=== PATIENT | female | born 1940 | race Caucasian/White ===

== ENCOUNTER → 2019-01-20 | Outpatient (CLI) | payer MEDICARE ==
[~2019-01-20] MED LIST: CALC1.25T PO; CHOL10002 PO; CRANBERRY250 MG PO; HYDCHL12.5 PO; IBUP400 PO; LETR2.5 PO; LOSA50 PO; NITR100 PO; PRAV20 PO
[2019-01-20 10:25] LABS: Source, Urine Clean Catch
[2019-01-20 10:38] LABS: Appearance, Urine Hazy (Clear); Bilirubin, Urine Neg (Neg); Blood, Urine 1+ (Neg); Color, Urine Yellow (P-Yellow); Glucose Qualitative, Urine Neg (Neg); Ketones, Urine Neg (Neg); Leukocyte Esterase, Urine 3+ (Neg); Nitrite, Urine Pos (Neg); Protein, Urine 1+ (Neg); Urobilinogen, Urine NORM (Normal)
[2019-01-20 11:04] LABS: Bacteria Mod /hpf; Red Blood Cells, Urine 0-2 /hpf (0-2); Squamous Epithelial Cells Mod /hpf (Few); White Blood Cells, Urine 25-50 /hpf (0-5)
== END | disposition home or self-care (01) ==
LOC: LAB 10:25 → LAB SHORT 10:25
PROVIDERS: Internal Medicine
DX: N39.0 Urinary tract infection, site not specified (principal)
CPT/HCPCS: 81001; 87077; 87086; 87186

== ENCOUNTER → 2019-01-29 | Outpatient (CLI) | payer MEDICARE ==
[2019-01-29 11:08] LABS: Source, Urine Clean Catch
[2019-01-29 11:25] LABS: Bilirubin, Urine Neg (Neg); Blood, Urine Neg (Neg); Glucose Qualitative, Urine Neg (Neg); Ketones, Urine Neg (Neg); Leukocyte Esterase, Urine Neg (Neg); Nitrite, Urine Neg (Neg); Protein, Urine Neg (Neg); Urobilinogen, Urine NORM (Normal)
[2019-01-29 12:03] LABS: Appearance, Urine Clear (Clear); Color, Urine Yellow (P-Yellow)
== END | disposition home or self-care (01) ==
LOC: LAB 11:07 → LAB SHORT 11:07
PROVIDERS: Internal Medicine
DX: N39.0 Urinary tract infection, site not specified (principal)
CPT/HCPCS: 81003

== ENCOUNTER 2019-04-19 12:05 | Day surgery (SDC) | payer MEDICARE ==
[~2019-04-19] VITALS: Ht 154.9 cm; Wt 59.4 kg
== END 2019-04-19 14:55 | disposition home or self-care (01) ==
LOC: ORSCSDS 12:05
PROVIDERS: Orthopaedic Surgery
PROC: 01N50ZZ Release Median Nerve, Open Approach (ICD-10-PCS; principal; 2019-04-19 14:45)
DX: G56.01 Carpal tunnel syndrome, right upper limb (principal); I10 Essential (primary) hypertension; Z79.899 Other long term (current) drug therapy
CPT/HCPCS: J0690; J2250; J2704; J3010; J7120

== ENCOUNTER → 2019-05-22 | Outpatient (CLI) | payer MEDICARE ==
[2019-05-26 16:06] LABS: M-SPIKE, % Not Observed % (Not Observed); PROTEIN,TOTAL,URINE 4.1 mg/dL (Not Estab.)
== END | disposition home or self-care (01) ==
LOC: OLS 10:33 → LAB SHORT 10:33 → LAB FUT 05-18 17:00
PROVIDERS: Internal Medicine
DX: Z00.01 Encounter for general adult medical examination with abnormal findings (principal)
CPT/HCPCS: 81050; 84166; 86335

== ENCOUNTER 2019-08-16 09:02 | Day surgery (SDC) | payer MEDICARE ==
[~2019-08-16] VITALS: Ht 154.9 cm; Wt 59.1 kg
== END 2019-08-16 12:30 | disposition home or self-care (01) ==
LOC: ORSCSDS 09:02
PROVIDERS: Orthopaedic Surgery
PROC: 01N50ZZ Release Median Nerve, Open Approach (ICD-10-PCS; principal; 2019-08-16 11:45)
DX: G56.02 Carpal tunnel syndrome, left upper limb (principal); I10 Essential (primary) hypertension; E78.5 Hyperlipidemia, unspecified; Z79.899 Other long term (current) drug therapy
CPT/HCPCS: J0690; J7120

== ENCOUNTER 2019-10-07 13:20 | Day surgery (SDC) | payer MEDICARE ==
[~2019-10-07] VITALS: Ht 154.9 cm; Wt 58.8 kg
--- NOTE | 2019-10-07 15:55 | NUR ---
10/07/19 1555 Karla Genao PATIENT REFUSED MULTIPLE OFFERS OF PO FLUIDS
== END 2019-10-07 15:54 | disposition home or self-care (01) ==
LOC: ORSCSDS 13:20
PROVIDERS: Internal Medicine Gastroenterology
PROC: 0DBL8ZX Excision of Transverse Colon, Via Natural or Artificial Opening Endoscopic, Diagnostic (ICD-10-PCS; principal; 2019-10-07 15:00)
PROC: 0DBN8ZX Excision of Sigmoid Colon, Via Natural or Artificial Opening Endoscopic, Diagnostic (ICD-10-PCS; principal; 2019-10-07 15:00)
DX: Z12.11 Encounter for screening for malignant neoplasm of colon (principal); Z86.010 Personal history of colon polyps; D12.3 Benign neoplasm of transverse colon; D12.5 Benign neoplasm of sigmoid colon; K57.30 Diverticulosis of large intestine without perforation or abscess without bleeding; K64.8 Other hemorrhoids; I10 Essential (primary) hypertension; Z79.899 Other long term (current) drug therapy
CPT/HCPCS: 88305; J2704; J7120

== ENCOUNTER 2020-01-19 11:39 | Day surgery (SDC) | payer MEDICARE ==
[~2020-01-19] VITALS: Ht 154.9 cm; Wt 60.4 kg
[2020-01-19] MEDS ORDERED: ACET325 (12:10)
[2020-01-19] MEDS ORDERED: MAGNESIUM OXID500 MG (12:11)
--- NOTE | 2020-01-19 13:29 | NUR ---
01/19/20 1329 Milagro Tsai PATIENT TOLERATED PROCEDURE W/O S/S OF DISTRESS OR C/0 OF PAIN. PULSE AND 02 LEVEL WNL. PATIENT TAKEN TO SDU WITH NO APPARENT DISTRESSS OF C/O.
== END 2020-01-19 13:55 | disposition home or self-care (01) ==
LOC: ORSCSDS 11:39
PROVIDERS: Orthopaedic Surgery
PROC: 3E0R33Z Introduction of Anti-inflammatory into Spinal Canal, Percutaneous Approach (ICD-10-PCS; principal; 2020-01-19 13:00)
DX: M54.16 Radiculopathy, lumbar region (principal); M48.062 Spinal stenosis, lumbar region with neurogenic claudication; M47.816 Spondylosis without myelopathy or radiculopathy, lumbar region; I10 Essential (primary) hypertension; E78.5 Hyperlipidemia, unspecified; Z79.899 Other long term (current) drug therapy
CPT/HCPCS: J1040

== ENCOUNTER 2023-05-21 10:08 | Emergency (ER) | payer MEDICARE ==
[~2023-05-21] VITALS: Ht 154.9 cm; Wt 59.0 kg
[~2023-05-21 10:08] MED LIST changes: +ACET325; +MAGNESIUM OXID500 MG
[2023-05-21 10:23] VITALS: BP 165/110
[2023-05-21] MEDS ORDERED: HYDCHL25 PO (10:58)
[2023-05-21] MEDS ORDERED: CARVEDILOL3.125 MG PO (10:58)
== END 2023-05-21 11:56 | disposition home or self-care (01) ==
LOC: ER 10:08
DX: S76.911A Strain of unspecified muscles, fascia and tendons at thigh level, right thigh, initial encounter (principal); X58.XXXA Exposure to other specified factors, initial encounter; I10 Essential (primary) hypertension; E78.5 Hyperlipidemia, unspecified; Z79.899 Other long term (current) drug therapy
CPT/HCPCS: 73552; 99283-25